=== PATIENT | male | born 1970 ===

== ENCOUNTER 2020-02-12 11:37 | Emergency (ER) | payer OTHER ==
--- NOTE | 2020-02-12 13:21 | CR ---
Left elbow: 2 views left elbow were obtained. Comparison: No prior elbow study. Joint spaces are preserved. No acute fracture or other bony abnormality is appreciated. Impression: 1. No abnormality is appreciated on 2 view left elbow study. Diagnostic code #1 This report was dictated in MDT
--- NOTE | 2020-02-12 13:22 | EDM.PDOC ---
ED HPI GENERAL MEDICAL PROBLEM - General Chief Complaint: Upper Extremity Injury/Pain Stated Complaint: INJURED LEFT ARM Time Seen by Provider: 02/12/20 11:39 Source of Information: Reports: Patient History Limitations: Reports: No Limitations - History of Present Illness INITIAL COMMENTS - FREE TEXT/NARRATIVE: HISTORY AND PHYSICAL: History of present illness: Patient is a 49-year-old male who presents to the ED today with concern of left elbow pain that occurred just prior to travel to the ED. Patient states that he was lifting up a box at work when he felt a popping sensation in his left elbow and since then has had pain with moving his elbow but states he has been fully able to move it. Patient denies any direct trauma to the elbow. Denies any prior injury. Patient denies fever, chills, chest pain, shortness of breath, or cough. Denies headache, neck stiff ness, change in vision, syncope, or near syncope. Denies nausea, vomiting, abdominal pain, diarrhea, constipation, or dysuria. Has not noted any blood in urine or stool. Patient has been eating and drinking appropriately. Review of systems: As per history of present illness and below otherwise all systems reviewed and negative. Past medical history: As per history of present illness and as reviewed below otherwise noncontributory. Surgical history: As per history of present illness and as reviewed below otherwise noncontributory. Social history: See social history for further information Family history: As per history of present illness and as reviewed below otherwise noncontributory. Physical exam: General: Patient is alert, oriented, and in no acute distress. Patient sitting comfortably on exam table. HEENT: Atraumatic, normocephalic, pupils equal and reactive bilaterally, negati ve for conjunctival pallor or scleral icterus, mucous membranes moist, TMs normal bilaterally, throat clear, neck supple, nontender, trachea midline. No drooling or trismus noted. No meningeal signs. No hot potato voice noted. Lungs: Clear to auscultation, breath sounds equal bilaterally, chest nontender. Heart: S1S2, regular rate and rhythm without overt murmur Abdomen: Soft, nondistended, nontender. Negative for masses or hepatosplenomegaly. Negative for costovertebral tenderness. Pelvis: Stable nontender. Genitourinary: Deferred. Rectal: Deferred. Skin: Intact, warm, dry. No lesions or rashes noted. Extremities: Patient has full range of motion of complete left upper extremity but does have pain with range of motion of the left elbow. Patient does have pain with palpation of the left biceps muscle body but tendon; hook test intact but pain with this on exam. Radial pulses grossly intact of the left upper extremity with capillary refill less than 2 seconds. Otherwise, atraumatic, negative for cords or calf pain. Neurovascular unremarkable. Neuro: Awake, alert, oriented. Cranial nerves II through XII unremarkable. Cerebellum unremarkable. Motor and sensory unremarkable throughout. Exam nonfocal. Notes: I do suspect that patient may have a partial tear in his biceps tendon. I will refer him to the orthopedic clinic for further evaluation. Discussed importance for follow-up with an orthopedic provider. Patient is to use shoulder sling until orthopedic follow-up as needed for pain relief. Voices understanding and is agreeable to plan of care. Denies any further questions or concerns at this time. Diagnostics: Left elbow and shoulder Therapeutics: Shoulder sling Prescription: None Impression: Left elbow injury Left biceps injury Plan: 1. Rest, ice, elevate the affected extremity. You can apply ice 15 minutes on, 15 minutes off. 2. Tylenol and/or Ibuprofen as directed for pain management or discomfort. 3. Follow up with the Orthopedic provider as discussed. The number has been provided above for you to call and establish an appointment time. Return to the ED as needed and as discussed. 4. Use the sling that has been provided to you as needed for symptomatic relief. Definitive disposition and diagnosis as appropriate pending reevaluation and review of above. Left Arm Pain Score (Numeric/FACES): 6 - Related Data Allergies Allergy/AdvReac Type Severity Reaction Status Date / Time No Known Allergies Allergy Verified 02/12/20 11:55 Home Meds: Home Meds PARoxetine HCl [Paxil] 60 mg PO DAILY 02/12/20 [History] Past Medical History Psychiatric History: Reports: OCD - Infectious Disease History Infectious Disease History: Reports: Chicken Pox Social & Family History - Family History Family Medical History: Noncontributory - Tobacco Use Smoking Status *Q: Never Smoker Second Hand Smoke Exposure: No - Caffeine Use Caffeine Use: Reports: None - Recreational Drug Use Recreational Drug Use: No Review of Systems - Review of Systems Review Of Systems: Comprehensive ROS is negative, except as noted in HPI. ED EXAM, GENERAL - Physical Exam Exam: See Below (see dictation) Course - Vital Signs Last Recorded V/S: Last Vital Signs Temp 98.4 F 02/12/20 11:56 Pulse 68 02/12/20 14:07 Resp 15 02/12/20 14:07 BP 122/72 02/12/20 14:07 Pulse Ox 97 02/12/20 14:07 - Orders/Labs/Meds Orders: Active Orders 24 hr Category Date Time Status DME for Discharge [COMM] Stat Oth 02/12/20 14:03 Ordered Departure - Departure Time of Disposition: 16:23 Disposition: Home, Self-Care 01 Clinical Impression: Injury of left elbow Qualifiers: Encounter type: initial encounter Qualified Code(s): S59.902A - Unspecified injury of left elbow, initial encounter Strain of left biceps Qualifiers: Encounter type: initial encounter Qualified Code(s): S46.212A - Strain of muscle, fascia and tendon of other parts of biceps, left arm, initial encounter - Discharge Information Instructions: How to Use Cold Therapy, [id number], Muscle Strain, [id number] Referrals: PCP,Not In Area [Primary Care Provider] - Forms: ED Department Discharge Additional Instructions: The following information is given to patients seen in the emergency department who are being discharged to home. This information is to outline your options for follow-up care. We provide all patients seen in our emergency department with a follow-up referral. The need for follow-up, as well as the timing and circumstances, are variable depending upon the specifics of your emergency department visit. If you don't have a primary care physician on staff, we will provide you with a referral. We always advise you to contact your personal physician following an emergency department visit to inform them of the circumstance of the visit and for follow-up with them and/or the need for any referrals to a consulting specialist. The emergency department will also refer you to a specialist when appropriate. This referral assures that you have the opportunity for follow-up care with a specialist. All of these measure are taken in an effort to provide you with optimal care, which includes your follow-up. Under all circumstances we always encourage you to contact your private physician who remains a resource for coordinating your care. When calling for follow-up care, please make the office aware that this follow-up is from your recent emergency room visit. If for any reason you are refused follow-up, please contact the [facility] Emergency Department at and asked to speak to the emergency department charge nurse. [facility] [address] [place] [address] [facility] [address] [place] [id number] [facility] Professional [facility] [address] [facility] [place] [address] [address] Rollins, Orthopedist [facility] [address] [place] [address] Dr Ding - Dr So - Dr Liu [facility] [address] [place] [address] [facility] [address] [place] [address] 1. Rest, ice, elevate the affected extremity. You can apply ice 15 minutes on, 15 minutes off. 2. Tylenol and/or Ibuprofen as directed for pain management or discomfort. 3. Follow up with the Orthopedic provider as discussed. The number has been provided above for you to call and establish an appointment time. Return to the ED as needed and as discussed. 4. Use the sling that has been provided to you as needed for symptomatic relief. Sepsis Event Note (ED) - Evaluation Sepsis Screening Result: No Definite Risk - Focused Exam Vital Signs: Vital Signs Temp Pulse Resp BP Pulse Ox 02/12/20 14:07 68 15 122/72 97 02/12/20 11:56 98.4 F 88 16 130/86 97 - My Orders Last 24 Hours: My Active Orders 02/12/20 14:03 DME for Discharge [COMM] Stat - Assessment/Plan Last 24 Hours: My Active Orders 02/12/20 14:03 DME for Discharge [COMM] Stat
--- NOTE | 2020-02-12 14:06 | CR ---
Left shoulder: 3 views left shoulder were obtained. Comparison: No previous shoulder study. Mild degenerative change is seen within the acromioclavicular joint without abnormal inferior spurring. Minimal spurring off the glenoid is seen. No acute fracture, dislocation or other bony abnormality is appreciated. Impression: 1. Mild degenerative change. 2. Nothing acute is appreciated on left shoulder study. Diagnostic code #2 This report was dictated in MDT
== END 2020-02-12 14:07 | disposition home or self-care (01) ==
LOC: MW.ED 11:37
DX: S46.212A Strain of muscle, fascia and tendon of other parts of biceps, left arm, initial encounter (principal); S59.902A Unspecified injury of left elbow, initial encounter; F42.9 Obsessive-compulsive disorder, unspecified; Z79.899 Other long term (current) drug therapy; X50.0XXA Overexertion from strenuous movement or load, initial encounter; Y92.89 Other specified places as the place of occurrence of the external cause; Y99.0 Civilian activity done for income or pay
CPT/HCPCS: 73030-26-LT; 73030-LT; 73070-26-LT; 73070-LT; 99283